=== PATIENT | female | born 1955 | race Caucasian/White ===

== ENCOUNTER 2018-03-02 04:49 | Emergency (ER) | payer OTHER ==
[2018-03-02] MEDS ORDERED: SODIUM BICARBONATE 50 MEQ/50 ML ABBOJECT IV ONE ×2 (04:50→05:52)
[2018-03-02] MEDS ORDERED: EPINEPHRINE ABBOJECT 1 MG IV ONE (04:50)
[2018-03-02] MEDS ORDERED: ATROPINE SULFATE 1MG SYR ABBOJECT IV ONE (04:50)
[2018-03-02] MEDS ORDERED: Calcium Gluconate 10% 1000 MG IV ONE (05:08)
--- NOTE | 2018-03-02 05:23 | ERPHSYRPT ---
- History of Present Illness Time Seen by Provider: 03/02/18 04:49 Source: family, EMS Exam Limitations: clinical condition Physician History: 62 y/o obese, diabetic white female with sig cardiac hx with cardiac stents in place, woke her daughter up at 0410 with soa and in a panic state. EMS called, bradycardia at scene, pt transported to ED with IV in placel single dose atropine, transcutaneousl pacing. pulsed lost and cpr began at 0438. single dose of epinephrine given. pt arrived to ED in cardiac arrest, pulseless, pupils fixed and dilated with no secure airway, no spontaneous breath sounds and no spontaneous heart beat. Timing/Duration: today Activities at Onset: none Severity of Pain-Max: none Severity of Pain-Current: none (pt un responsive) Modifying Factors: Improves With: nothing Nitro Today/Relief: no nitro taken today Aspirin Treatment Today: no aspirin today Prior Chest Pain/Cardiac Workup: cardiac cath, echocardiography, heart attack - Review of Systems Constitutional: Other (unresponsive) Eyes: Other (bilat pupils fixed, dilated) Ears, Nose, & Throat: No Symptoms Respiratory: Other (no spontaneous breath sounds) Cardiac: Other (pulseless) Abdominal/Gastrointestinal: Other (pt unresponsive) Musculoskeletal: Other (pt unresponsive) Skin: Other (cool pale clammy) Neurological: Other (pt unresponsive) Psychological: No Symptoms Hematologic/Lymphatic: No Symptoms Immunological/Allergic: No Symptoms All Other Systems: Reviewed and Negative - Past Medical History Pertinent Past Medical History: Yes Neurological History: No Pertinent History ENT History: No Pertinent History Cardiac History: Coronary Artery Disease, Myocardial Infarction (ND) Respiratory History: COPD Endocrine Medical History: Diabetes Type II Musculoskeletal History: No Pertinent History GI Medical History: No Pertinent History History: No Pertinent History Psycho-Social History: No Pertinent History Female Reproductive Disorders: No Pertinent History - Past Surgical History Neuro Surgical History: No Pertinent History Cardiac: Cardiac Stent Respiratory: No Pertinent History Genitourinary: No Pertinent History Musculoskeletal: No Pertinent History - Physical Exam General Appearance: obese, other (unresponsive) Eye Exam: other (bilat pupils fixed and dilated) Ears, Nose, Throat Exam: dry mucous membranes Neck Exam: normal inspection Respiratory Exam: other (no spontaneous breath sounds) Cardiovascular Exam: other (no pulse and no spontaneous heart tones.) Gastrointestinal/Abdomen Exam: soft, normal bowel sounds, No tenderness, No guarding Pelvic Exam: not done Rectal Exam: not done Neurologic Exam: other (unresponsive) Skin Exam: pale, other (cool clammy and pale) Lymphatic Exam: adenopathy SpO2 Interpretation: normal, hypoxic, ABG ordered, O2 applied, airway management int. Oxygen Delivery: Ventilator Procedures - Intubation Intubation Indications: cardiac arrest Intubation Method: orotracheal, curved blade, glidescope Tube Size (cm): 7.5 Endotracheal Tube Confirmation: bilateral breath sounds, positive end tidal CO2 Intubation Complications: no complications Performed By: Respiratory Therapy Post Intubation Xray: Yes Progress/X-ray Impression: 03/02/18 06:27 bilat diffuse inflammatory response, pulmonary edema. 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 Care 03/02/18 05:24 Ordered Catheter-[place] STAT Care 03/02/18 05:23 Ordered EKG-ER Only STAT Care 03/02/18 05:23 Ordered IV Insertion STAT Care 03/02/18 05:23 Ordered Pulse Oximetry (ED) STAT Care 03/02/18 05:23 Ordered Re-Check Vital Signs STAT Care 03/02/18 05:23 Ordered CHEST 1 VIEW (PORTABLE) Routine Exams 03/02/18 05:31 Taken CBC W DIFF Routine Lab 03/02/18 05:30 Received CBC W DIFF Stat Lab 03/02/18 05:23 Ordered CMP Routine Lab 03/02/18 05:30 Received D-DIMER QUANTITATION Routine Lab 03/02/18 05:30 Received D-DIMER QUANTITATION Stat Lab 03/02/18 05:23 Ordered MAGNESIUM Routine Lab 03/02/18 05:30 Received MAGNESIUM Stat Lab 03/02/18 05:23 Ordered Manual Differential NC Stat Lab 03/02/18 05:30 Completed PROTIME WITH INR Routine Lab 03/02/18 05:30 Received PROTIME WITH INR Stat Lab 03/02/18 05:23 Ordered PTT Routine Lab 03/02/18 05:30 Received TROPONIN Q3H Lab 03/02/18 08:30 Ordered TROPONIN Q3H Lab 03/02/18 11:30 Ordered TROPONIN Q3H Lab 03/02/18 14:30 Ordered TROPONIN Q3H Lab 03/02/18 17:30 Ordered TROPONIN Routine Lab 03/02/18 05:30 Received Medication Summary Generic Name Dose Route Start Last Admin Trade Name Gilmer PRN Reason Stop Dose Admin Sodium Chloride 1,000 mls @ 999 mls/hr 03/02/18 05:56 Sodium Chloride 0.9% 1000 Ml IV 03/02/18 06:56 .Q1H1M STA Discontinued Medications Generic Name Dose Route Start Last Admin Trade Name Gilmer PRN Reason Stop Dose Admin Calcium Chloride 1,000 mg 03/02/18 05:55 Calcium Chloride 10% 1000 Mg IV 03/02/18 05:56 STAT ONE Calcium Gluconate Confirm 03/02/18 05:08 Calcium Gluconate 10% 1000 Mg Administered 03/02/18 05:09 Dose 1,000 mg IV .STK-MED ONE Sodium Chloride Confirm 03/02/18 05:30 Sodium Chloride 0.9% 1000 Ml Administered 03/02/18 05:31 Dose 1,000 mls @ ud .ROUTE .STK-MED ONE Insulin Human Regular Confirm 03/02/18 05:26 Novolin R Administered 03/02/18 05:27 Dose 25 unit .ROUTE .STK-MED ONE Insulin Human Regular 25 unit 03/02/18 05:53 Novolin R IV 03/02/18 05:54 STAT ONE Insulin Human Regular Confirm 03/02/18 05:52 Novolin R Administered 03/02/18 05:53 Dose 20 unit .ROUTE .STK-MED ONE Insulin Human Regular 20 unit 03/02/18 05:54 Novolin R IV 03/02/18 05:55 STAT ONE Sodium Bicarbonate Confirm 03/02/18 05:52 Sodium Bicarbonate 50 Meq/50 Ml Abboject Administered 03/02/18 05:53 Dose 50 meq IV .STK-MED ONE Lab/Rad Data: Laboratory Result Diagrams 03/02/18 05:30 Laboratory Results 03/02/18 03/02/18 03/02/18 Range/Units 05:30 05:30 05:30 WBC 24.1 H (4.0-10.5) K/mm3 RBC 3.88 L (4.1-5.4) M/mm3 Hgb 12.2 (12.0-16.0) gm/dl Hct 40.2 (35-47) % MCV 103.6 H (78-100) fl MCH 31.4 (26-32) pg MCHC 30.3 L (32-36) g/dl RDW 13.9 (11.5-14.0) % Plt Count 123 L (150-450) K/mm3 MPV 11.6 H (6-9.5) fl PT 14.8 H (9.95-12.35) SECONDS INR 1.27 (0.8-3.0) D-Dimer 14675 H* (215-500) ng/mL Digoxin 1.1 (0.8-1.9) ng/mL - Progress Progress: re-examined Air Movement: poor Progress Note: 03/02/18 06:33 this pt arrives in pulseless cardiac arrest. after orotracheal intubation and approx 20 minutes cpr including epi and chest compressions, pts pulse returned to bradycardia. pt received atropine and transcutaneous pacing. pt found to have bs >600 and severely acidotic on ABG. in addition, pts potassium elevated. pt received sodium bicarbonate, regular insulin and calcium gluconate. pt became pulseless again at approx 0540. cpr resumed. within 10 minutes pulse returned to bradycardia. we maxed the atropine dosing and placed pt on transcutaneous pacing. pt lost pulse again at approx 0619. pts family request we stop cpr and make her DNR. pts neuro status never changed. code called at 0623. pts bilat pupils were fixed, dilated. no spontaneous breath sounds or heart tones. no palpable pulse.. Blood Culture(s) Obtained: No Antibiotics given: No Counseled pt/family regarding: lab results, diagnosis, rad results - Departure Time of Disposition: 06:23 Departure Disposition: Clinical Impression: Cardiac arrest Condition: Critical Care Time: Yes Critical Care Time(excluding separately billable procedures): 75-104 minutes Referrals: ZURDO GALE MD [Primary Care Provider] -
[2018-03-02] MEDS ORDERED: NovoLIN R ONE ×2 (05:26→05:52)
[2018-03-02] MEDS ORDERED: Sodium Chloride 0.9% 1000 ML 1,000 ML ONE (05:30)
[2018-03-02] MEDS ORDERED: NovoLIN R IV ONE ×2 (05:53→05:54)
[2018-03-02] MEDS ORDERED: CALCIUM CHLORIDE 10% 1000 MG IV ONE (05:55)
[2018-03-02] MEDS ORDERED: Sodium Chloride 0.9% 1000 ML 1,000 ML IV STA (05:56)
[2018-03-02 05:59] LABS: ALBUMIN 2.8 g/dL (3.5-5.0); ANION GAP 28.9 MEQ/L (5-15); BILIRUBIN,TOTAL 0.7 mg/dL (0.2-1.3); Calcium 8.7 mg/dL (8.4-10.2); Creatinine 1 1.19 mg/dL (0.52-1.04)
[2018-03-02 06:06] LABS: INR 1.27 (0.8-3.0)
[2018-03-02 06:09] LABS: Hematocrit 40.2 % (35-47); Hemoglobin 12.2 gm/dl (12.0-16.0); Mean Cell Volume 103.6 fl (78-100); Mean Corpuscular Hemoglobin 31.4 pg (26-32); Mean Corpuscular Hgb Concent. 30.3 g/dl (32-36); Mean Platelet Volume 11.6 fl (6-9.5); Platelet Count 123 K/mm3 (150-450); Red Blood Count 3.88 M/mm3 (4.1-5.4); Red Cell Distribution Width 13.9 % (11.5-14.0); White Blood Count 24.1 K/mm3 (4.0-10.5)
[2018-03-02 06:12] LABS: TROPONIN 1.56 ng/mL (0.000-0.034)
[2018-03-02 06:31] LABS: Lymphocytes 17 % (24-44); Monocyte 6 % (0.0-12.0); Neutrophils 77 % (36.0-66.0); Platelet Estimate NORMAL (NORMAL); Total Cells Counted 100
[2018-03-02 06:50] LABS: A-aADO2 536; ABG HEMOGLOBIN 12.5; ARTERIAL BLD GAS O2 SATURATION 93.4 % (95-100); ARTERIAL BLOOD GAS FIO2 100 %; ARTERIAL BLOOD GAS PCO2 48 mmHg (35-45); ARTERIAL BLOOD GAS PO2 117 mmHg (75-100); ARTERIAL BLOOD GAS pH < 6.80 (7.35-7.45); CARBOXYHEMOGLOBIN 1.1 % THgb (0.0-6.9); HGB O2 SAT 92.4 g/dF (94-100); paO2 pAO1 0.18
[2018-03-02 06:51] LABS: ABG POTASSIUM 6.6 (3.5-5.1); ABG SITE RFEM; Glucose,Critical Care > 750 (70-110)
[2018-03-02 06:52] LABS: A-aADO2 543; ABG HEMOGLOBIN 11.6; ABG POTASSIUM 8.1 (3.5-5.1); ARTERIAL BLD GAS O2 SATURATION 95.9 % (95-100); ARTERIAL BLOOD GAS FIO2 100 %; ARTERIAL BLOOD GAS PCO2 32 mmHg (35-45); ARTERIAL BLOOD GAS PO2 130 mmHg (75-100); ARTERIAL BLOOD GAS pH < 6.80 (7.35-7.45); CARBOXYHEMOGLOBIN 1.2 % THgb (0.0-6.9); HGB O2 SAT 94.7 g/dF (94-100); paO2 pAO1 0.19
[2018-03-02 06:53] LABS: ABG SITE RFEM; Glucose,Critical Care > 750 (70-110)
[2018-03-02 08:32] VITALS: PULSE 0
--- NOTE | 2018-03-02 09:06 | XRAY ---
Indication: Endotracheal tube placement. Comparison: None Portable chest demonstrates endotracheal tube tip 5 cm above the nadia. Chest demonstrates diffuse pulmonary edema without consolidation, large effusion, or cardiomegaly. Bony thorax intact with mild degenerative changes. Scattered soft tissue calcifications at the base of the neck, left greater than right and also left shoulder.
== END 2018-03-02 06:23 | disposition expired ==
LOC: EDBD 04:49 → ED 04:49 → MERGE 04:49 → ED 06:23
DX: I46.9 Cardiac arrest, cause unspecified (principal); E11.9 Type 2 diabetes mellitus without complications; I25.2 Old myocardial infarction
CPT/HCPCS: 31500; 36000; 36415; 36600; 51702; 71045; 80053; 80162; 82375; 82803; 82947; 83735; 84484; 85025; 85379; 85610; 93005; 93041; 94002; 94799; 96374; 96375; 96376; 99284; 99291; 99292; J0171; J0461; J0610; A9270-GY